=== PATIENT | male | born 1970 | race Two or more races ===

== ENCOUNTER 2023-09-09 08:59 | Inpatient (IN) | payer BC ==
[~2023-09-09] VITALS: Ht 182.9 cm; Wt 108.9 kg
[2023-09-09] VITALS (11 sets, daily range): BP systolic 105–123; BP diastolic 63–78; PULSE 61–121; RESP 14–19; TEMP 96.8; O2SAT 89–100
[2023-09-09] MEDS ORDERED: MORPHINE SULF PF 5 MG/10 ML VIAL ONE (11:14)
[2023-09-09] MEDS ORDERED: MIDAZOLAM HCL 2MG/2ML 2ml VIAL (1mg/ml) ONE ×2 (11:14→13:17)
[2023-09-09] MEDS ORDERED: fentaNYL CITRATE 100 MCG/2 ML VL ONE (11:14)
[2023-09-09] MEDS ORDERED: KETOROLAC TROMETH 30 MG/ML 1ML VIAL ONE (11:15)
[2023-09-09] MEDS ORDERED: GLYCOPYRROLATE 0.2 MG/ML 1ML VIAL ONE (11:15)
[2023-09-09] MEDS ORDERED: ONDANSETRON HCL 4 MG/2 ML VIAL ONE (11:15)
[2023-09-09] MEDS ORDERED: DexAMETHasone SOD PHOS 10MG/1ML VIAL INJ ONE (11:15)
[2023-09-09] MEDS ORDERED: PROPOFOL 10 MG/ML 20 ML IV ONE (11:15)
[2023-09-09] MEDS ORDERED: KETAMINE 50mg/ML 1ml syringe ONE ×2 (11:15→12:27)
[2023-09-09] MEDS ORDERED: oxyCODONE HCL 5MG TAB PO PRN ×2 (11:30)
[2023-09-09] MEDS: VANCOMYCIN HCL 1000 MG VL ONE ×2 (13:46)
[2023-09-09] MEDS ORDERED: ONDANSETRON HCL 4 MG/2 ML VIAL IV PRN ×2 (14:15→14:45)
[2023-09-09] MEDS ORDERED: KETOROLAC TROMETH 30 MG/ML 1ML VIAL IV PRN (14:45)
[2023-09-09] MEDS ORDERED: diphenhdrAMINE HCL 50 MG/1 ML VL IV PRN (14:45)
[2023-09-09] MEDS ORDERED: NALOXONE HCL 0.4 MG/ML VIAL IV PRN (14:45)
[2023-09-09] MEDS ORDERED: DexAMETHasone SOD PHOS 10MG/1ML VIAL INJ IV PRN (14:45)
[2023-09-09] MEDS: ACETAMINOPHEN 325 MG TAB PO SCH (18:00)
[2023-09-09] MEDS ORDERED: ceFAZolin 2 GM/D5W50ml 50 ML IV SCH (18:00)
[2023-09-09] MEDS: KETOROLAC TROMETH 30 MG/ML 1ML VIAL IV SCH (18:00)
[2023-09-09] MEDS: SODIUM CHLORIDE 0.9% 1,000 ML IV SCH (19:30)
[2023-09-09] MEDS: ceFAZolin 2 GM/D5W50ml 50 ML IV SCH (21:44)
[2023-09-09] MEDS: PREGABALIN 25 MG CAP PO SCH (21:44)
[2023-09-10] VITALS (22 sets, daily range): BP systolic 89–143; BP diastolic 52–80; PULSE 71–100; RESP 14–20; TEMP 97.2–98.8; O2SAT 76–98
[2023-09-10 06:36] LABS: Basophils # (auto) 0 10 ^3/uL (0-0.2); Basophils % (auto) 0.1 % (0.0-2.0); Eosinophils # (auto) 0 10 ^3/uL (0-0.8); Hematocrit 33.8 % (41.0-53.0); Hemoglobin 11.4 g/dL (13.5-17.5); Lymphocytes # (auto) 1.2 10 ^3/uL (0.4-5.4); Lymphocytes % (auto) 10.5 % (10.0-50.0); Mean Corpuscular Hemoglobin 31.1 pg (28.0-32.0); Mean Corpuscular Hgb Conc. 33.6 g/dL (32.0-36.0); Mean Corpuscular Volume 92.6 fL (80.0-100.0); Monocytes # (auto) 0.8 10 ^3/uL (0-1.3); Monocytes % (auto) 7.2 % (0.0-12.0); Neutrophils # (auto) 9.6 10 ^3/uL (1.6-8.6); Neutrophils % (auto) 82.2 % (37.0-80.0); Red Blood Cells 3.65 10^6/uL (4.5-5.90); Red Cell Distribution Width 13.6 % (11.8-14.3); White Blood Cell 11.7 10^3/uL (4.4-10.8)
[2023-09-10 06:44] LABS: Anion Gap 5 (5-15); Carbon Dioxide 26 mmol/L (20-30); Chloride 104 mmol/L (98-107); Potassium 4.3 mmol/L (3.5-5.1); Sodium 135 mmol/L (136-145)
[2023-09-10 06:45] LABS: Calcium 8.7 mg/dL (8.7-10.4)
[2023-09-10 06:50] LABS: Blood Urea Nitrogen 18 mg/dL (9-23); Glucose 145 mg/dL (74-106)
[2023-09-10] MEDS: TRANEXAMIC ACID 20 ML ONE (08:13)
[2023-09-10] MEDS: ONDANSETRON HCL 4 MG/2 ML VIAL IV ONE (08:13)
[2023-09-10] MEDS: ceFAZolin 2 GM/D5W50ml 50 ML IV ONE (08:13)
[2023-09-10] MEDS: APIXABAN 2.5 MG TAB PO SCH (10:12)
[2023-09-10] MEDS ORDERED: KETOROLAC TROMETH 30 MG/ML 1ML VIAL IV SCH (22:00)
== END 2023-09-10 19:30 | disposition home health service (06) | DRG 470 ==
LOC: SUR 08:59 → TELE 14:06 → TELE-CENTR 15:57
PROVIDERS: ADMIT Orthopaedic Surgery; ATTEND Orthopaedic Surgery
PROC: 0SRB0JZ Replacement of Left Hip Joint with Synthetic Substitute, Open Approach (ICD-10-PCS; principal; 2023-09-09 12:10)
DX: M16.12 Unilateral primary osteoarthritis, left hip (principal)
CPT/HCPCS: 36415; 72170; 73501; 80048; 85025; 86850; 86870; 86880; 86900; 86901; 86905; 86906; 86971; 97110; 97116; 97163; 97530; A4565; G0378; J1100; J1885; J2250; J2405; J2704